=== PATIENT | female | born 1980 | race Caucasian/White ===

== ENCOUNTER 2022-07-13 09:53 | Day surgery (SDC) | payer OTHER ==
[~2022-07-13] VITALS: Ht 162.6 cm; Wt 84.0 kg
[~2022-07-13 09:53] MED LIST: ALLE180T33 PO; ATOR1TAB21 PO; AZEL0.1S NARES; CLOP75TA2 PO; DILT180C39 PO; FLON1SPR; HYDR12CA PO; METO1TAB7 PO; NS 1,000 ML IV ONE; OMEP40CA5 PO; POTA-149 PO
[2022-07-13] MEDS ORDERED: fentaNYL 100 MCG/2 ML INJECTION As Ordered ONE (11:21)
[2022-07-13] MEDS ORDERED: propofoL 200 MG/20 ML VIAL As Ordered ONE (11:21)
[2022-07-13 12:30] VITALS: BP 136/96
== END 2022-07-13 13:07 | disposition home or self-care (01) ==
LOC: M OPP 09:53
PROVIDERS: ATTEND Internal Medicine Gastroenterology
DX: K57.30 Diverticulosis of large intestine without perforation or abscess without bleeding (principal); K64.4 Residual hemorrhoidal skin tags; K64.8 Other hemorrhoids; K52.9 Noninfective gastroenteritis and colitis, unspecified; K22.89 Other specified disease of esophagus; K44.9 Diaphragmatic hernia without obstruction or gangrene; K29.70 Gastritis, unspecified, without bleeding; K31.7 Polyp of stomach and duodenum; Z79.2 Long term (current) use of antibiotics; Z79.52 Long term (current) use of systemic steroids; Z79.899 Other long term (current) drug therapy; Z88.1 Allergy status to other antibiotic agents; Z88.6 Allergy status to analgesic agent; Z88.8 Allergy status to other drugs, medicaments and biological substances
CPT/HCPCS: 43239; 43251; 45378; 88305; J3010